=== PATIENT | male | born 1985 | race Caucasian/White ===

== ENCOUNTER → 2018-11-04 | Outpatient (CLI) | payer OTHER ==
[~2018-11-04] MED LIST: GADOBENATE 529MG/1ML 5 ML VIAL ONE; IOPAMIDOL-200 50 ML VIAL IS ONE; LIDOCAINE MPF 1% 5 ML VIAL ONE; NS 0.9% 20 ML SDV 20 ML ONE
--- NOTE | 2018-11-04 15:40 | RADIOLOGY IMAGING REPORT ---
FACILITY: [facility] - [place] PATIENT NAME: Alfonso Gómez : 1985 MR: [id number] V: [id number] EXAM DATE: ORDERING PHYSICIAN: FIONA MCINTYRE TECHNOLOGIST: Location: [facility] - [place] Patient: Alfonso Gómez : 1985 Visit/Account:[id number] Date of Sevice: 11/04/2018 Exam type: XR ARTHROGRAM SHOULDER History: Left shoulder instability, subluxation and pain x4 weeks Comparison: Left shoulder series October 04, 2018. Findings: Informed consent was obtained. The patient's left shoulder was prepped and draped usual sterile formerly [facility] ion. Local anesthesia, was accomplished with 1% lidocaine. Under fluoroscopic guidance a 22-gauge s katelynn needle was advanced percutaneously into the anterior aspect of the left shoulder joint. 8 mL o f a dilute gadolinium suspension combined with saline and Isovue-200 was instilled into the left shou lder joint. The procedure was accomplished without apparent complication. The patient was then sent to for further imaging. Incidentally noted is a fracture through the distal aspect of the left c lavicle that appears relatively acute. The dose area product was 110.87 micro-Joseph per meter squared IMPRESSION: 1. Successful fluoroscopically guided left shoulder arthrogram Incidental note of a relatively acute appearing fracture through the distal left clavicle Report Dictated By: Marj Celeste MD at 11/04/2018 3:32 PM Report E-Signed By: Marj Celeste MD at 11/04/2018 3:36 PM WSN:[id number]
--- NOTE | 2018-11-04 17:48 | RADIOLOGY IMAGING REPORT ---
FACILITY: [facility] - [place] PATIENT NAME: Alfonso Gómez : 1985 MR: [id number] V: [id number] EXAM DATE: ORDERING PHYSICIAN: FIONA MCINTYRE TECHNOLOGIST: Location: [facility] Patient: Alfonso Gómez : 1985 Visit/Account:[id number] Date of Sevice: 11/04/2018 MR arthrogram left shoulder Indication: Instability. Injury. Comparison: None available. Technique: Sagittal and coronal T1 weighted fat saturated and T2-weighted fat saturated as well as ax ial T1-weighted and a gradient echo images were obtained through the left shoulder after intra-articu lar administration of gadolinium. Findings: There is no increased signal on the T1-weighted images to suggest gadolinium within the joint space. Nonetheless, there are severe inflammatory changes of the distal clavicle secondary to nondisplaced f racture involving the distal lateral aspect of the clavicle. Hypertrophic changes and inflammatory changes causes minimal mass effect on upon the anterior suprasp inatus as well. There is mild bursal surface fraying distal anterior supraspinatus fibers. The teres minor is intact as well as the infraspinatus and the subscapularis. The visualized biceps tendon is intact and unremarkable there is no discrete labral tear identified. IMPRESSION: 1. Mild offset fracture distal lateral clavicle with prominent surrounding marrow edema as above. 2. Overall intact rotator cuff aside from mild bursal surface fraying distal anterior supraspinatus. Report Dictated By: Duane Verma MD at 11/04/2018 5:40 PM Report E-Signed By: Duane Verma MD at 11/04/2018 5:44 PM WSN:[id number]
== END ==
LOC: MRI 12:40
PROVIDERS: ATTEND Emergency Medicine Sports Medicine
DX: M25.312 Other instability, left shoulder (principal); S42.032A Displaced fracture of lateral end of left clavicle, initial encounter for closed fracture
CPT/HCPCS: 27369; 73222; A9577; J2001; J7050; Q9966

== ENCOUNTER → 2018-11-17 | Outpatient (CLI) | payer OTHER ==
--- NOTE | 2018-11-17 15:44 | RADIOLOGY IMAGING REPORT ---
FACILITY: [facility] PATIENT NAME: Alfonso Gómez : 1985 MR: [id number] V: [id number] EXAM DATE: ORDERING PHYSICIAN: FIONA MCINTYRE TECHNOLOGIST: Location: [facility] - [place] Patient: Alfonso Gómez : 1985 Visit/Account:[id number] Date of Sevice: 11/17/2018 CLAVICLE LEFT COMPARISONS: Views of the left shoulder dated October 04, 2018 ADDITIONAL PERTINENT HISTORY: Previous left clavicle fracture. FINDINGS: Osseous structures: Subacute appearing, nondisplaced fracture of the distal left clavicle. Fracture f ragments remain in near-anatomic alignment. No new bony abnormalities when compared to previous exam. Joint spaces: Negative. Surrounding soft tissues: Negative. IMPRESSION: 1. Subacute appearing, nondisplaced fracture involving the distal left clavicle. 2. No new findings since previous exam. Report Dictated By: Aki Ventura MD at 11/17/2018 3:38 PM Report E-Signed By: Aki Ventura MD at 11/17/2018 3:40 PM WSN:[id number]
== END ==
LOC: RAD 14:56
PROVIDERS: ATTEND Emergency Medicine Sports Medicine
DX: S42.002D Fracture of unspecified part of left clavicle, subsequent encounter for fracture with routine healing (principal)